=== PATIENT | female | born 1955 | race Caucasian/White ===

== ENCOUNTER 2016-11-02 22:41 | Emergency (ER) | payer OTHER ==
[~2016-11-02] VITALS: Ht 160 cm; Wt 106.8 kg
[2016-11-02] MEDS ORDERED: PANT40TA25 PO (22:55)
[2016-11-02] MEDS ORDERED: BUPR75 PO (22:55)
[2016-11-02] MEDS ORDERED: GABA-529 PO (22:55)
[2016-11-02] MEDS ORDERED: AMIT10TA6 PO (22:55)
[2016-11-02 23:56] LABS: BASOPHILS % (AUTO) 0.1 % (0.0-2.0); EOSINOPHILS % (AUTO) 0.6 % (1.0-6.0); HEMOGLOBIN 12.6 g/dL (12.0-16.0); LYMPHOCYTES # (AUTO) 1.4 K/uL (1.0-4.8); LYMPHOCYTES % (AUTO) 19.1 % (22.0-44.0); MEAN CORPUSCULAR HGB CONC 33.2 G/dL (31.0-37.0); MEAN CORPUSCULAR VOLUME 91 fL (80-100); MONOCYTES # (AUTO) 0.5 K/uL (0.1-1.0); MONOCYTES % (AUTO) 7.6 % (2.0-9.0); NEUTROPHILS # (AUTO) 5.3 K/uL (1.8-7.7); NEUTROPHILS % (AUTO) 72.6 % (40.0-70.0); PLATELET COUNT (AUTO) 266 K/uL (150-450); RED BLOOD CELL COUNT(AUTO) 4.19 MIL/uL (4.00-5.20); RED CELL DISTRIBUTION WIDTH 13.7 % (11.5-14.5); WHITE BLOOD COUNT (AUTO) 7.2 K/uL (4.5-11.0)
[2016-11-03 00:04] LABS: ANION GAP 7 mmol/L (8-16); CALCIUM, TOTAL 8.8 mg/dL (8.8-10.5); CARBON DIOXIDE 28 mmol/L (22-29); CHLORIDE 101 mmol/L (98-107); CREATININE 0.93 mg/dL (0.60-1.30); GLOMERULAR FILTR. RATE CALC > 60 mL/min (>60); POTASSIUM 3.4 mmol/L (3.5-5.1); SODIUM SERUM 136 mmol/L (136-145); UREA NITROGEN, BLOOD 13 mg/dL (7-18)
[2016-11-03 00:10] LABS: LACTIC ACID 1.1 mmol/L (0.4-2.0)
[2016-11-03 00:17] LABS: ALANINE AMINOTRANSFERASE 25 U/L (12-78); ALBUMIN 3.7 g/dL (3.4-5.0); ASPARTATE AMINOTRANSFERASE 16 U/L (15-37); BILIRUBIN,TOTAL 0.4 mg/dL (0.1-1.0); TOTAL PROTEIN, SERUM 7.3 g/dL (6.4-8.2)
[2016-11-03 00:24] LABS: B-TYPE NATRIURETIC PEPTIDE 6 pg/mL (0-100)
[2016-11-03 01:00] LABS: APPEARANCE,URINE CLEAR (CLEAR); GLUCOSE, URINE (UA) NEGATIVE (NEGATIVE); KETONES,URINE NEGATIVE (NEGATIVE); LEUKOCYTE ESTERASE ,URINE NEGATIVE (NEGATIVE); OCCULT BLOOD,URINE MODERATE (NEGATIVE); PH,URINE 5.5 (5.0-8.0); PROTEIN,URINE NEGATIVE (NEGATIVE)
[2016-11-03 01:08] LABS: ADD UA MICROSCOPIC YES
[2016-11-03 01:19] LABS: WBC,URINE None Seen /HPF (0-5)
[2016-11-03] MEDS ORDERED: MORPHINE SULFATE 4 MG/ML SYRINGE IVP ONE (01:45)
[2016-11-03] MEDS ORDERED: ONDANSETRON HCL 4 MG/2 ML VIAL IVP ONE (01:45)
[2016-11-03 01:49] VITALS: BP 110/79
== END 2016-11-03 01:57 | disposition home or self-care (01) ==
LOC: EMS 22:43
DX: R50.9 Fever, unspecified (principal); R19.7 Diarrhea, unspecified; E87.6 Hypokalemia; F32.9 Major depressive disorder, single episode, unspecified; Z79.899 Other long term (current) drug therapy
CPT/HCPCS: 36415; 51701; 71010; 80053; 81001; 83605; 83880; 84484; 85025; 87040; 93005; 96374; 96375; 99285; J2270; J2405

== ENCOUNTER 2022-08-19 12:31 | Emergency (ER) | payer MEDICARE, OTHER, SELFPAY ==
[~2022-08-19] VITALS: Ht 157.5 cm; Wt 77.3 kg
[~2022-08-19 12:31] MED LIST: AMIT-166 PO; BUPR-344 PO; GABA-1216 PO; PANT-31 PO
[2022-08-19] MEDS ORDERED: POLYOS OS (15:09)
[2022-08-19 15:26] VITALS: BP 142/98
== END 2022-08-19 15:27 | disposition home or self-care (01) ==
LOC: EMS 12:42
DX: H10.9 Unspecified conjunctivitis (principal); F32.A Depression, unspecified; G89.29 Other chronic pain
CPT/HCPCS: 99281; Z7502